=== PATIENT | female | born 1990 | race Caucasian/White ===

== ENCOUNTER 2020-08-25 19:20 | Emergency (ER) | payer MEDICAID ==
[~2020-08-25] VITALS: Ht 152.4 cm; Wt 63.0 kg
[2020-08-25 19:48] VITALS: BP 111/70
== END 2020-08-25 20:37 | disposition left against medical advice (07) ==
LOC: ER 19:20
DX: M25.521 Pain in right elbow (principal)
CPT/HCPCS: 81025; 99282

== ENCOUNTER 2024-06-04 21:06 | Emergency (ER) | payer MEDICAID ==
[~2024-06-04] VITALS: Ht 152.4 cm; Wt 56.0 kg
[2024-06-04 21:06] VITALS: O2SAT 99
[2024-06-04 21:16] VITALS: BP 111/67; PULSE 98; RESP 16; TEMP 36.9; O2SAT 98
== END 2024-06-05 01:05 | disposition left against medical advice (07) ==
LOC: ER 21:06
DX: N76.0 Acute vaginitis (principal); Z53.21 Procedure and treatment not carried out due to patient leaving prior to being seen by health care provider